=== PATIENT | male | born 1940 | race Caucasian/White ===

== ENCOUNTER 2020-08-06 11:41 | Inpatient (IN) | payer MEDICARE, MEDICAID ==
[~2020-08-06] VITALS: Ht 175.3 cm; Wt 52.2 kg
[2020-08-06] MEDS ORDERED: SODIUM CHLORIDE 0.9% 1,000 ML IV ONE (11:45)
[2020-08-06 12:13] LABS: Basophils # (auto) 0.1 10 ^3/uL (0-0.2); Basophils % (auto) 1.2 % (0.0-2.0); Eosinophils # (auto) 0.2 10 ^3/uL (0-0.8); Hematocrit 40.8 % (41.0-53.0); Hemoglobin 13.8 g/dL (13.5-17.5); Lymphocytes # (auto) 1.5 10 ^3/uL (0.4-5.4); Lymphocytes % (auto) 20.4 % (10.0-50.0); Mean Corpuscular Hemoglobin 32.2 pg (28.0-32.0); Mean Corpuscular Hgb Conc. 33.8 g/dL (32.0-36.0); Mean Corpuscular Volume 95.1 fL (80.0-100.0); Monocytes # (auto) 0.5 10 ^3/uL (0-1.3); Monocytes % (auto) 7.4 % (0.0-12.0); Red Blood Cells 4.29 10^6/uL (4.5-5.90); Red Cell Distribution Width 13.4 % (11.8-14.3); White Blood Cell 7.4 10^3/uL (4.4-10.8)
[2020-08-06 12:33] LABS: Albumin 3.6 g/dL (3.4-5.0); Anion Gap 6 (5-15); Blood Urea Nitrogen 25 mg/dL (7-18); Calcium 8.8 mg/dL (8.5-10.1); Carbon Dioxide 27 mmol/L (21-32); Chloride 112 mmol/L (98-107); Glucose 117 mg/dL (74-106); Magnesium 2.9 mg/dL (1.6-2.6); Sodium 145 mmol/L (136-145)
[2020-08-06 12:40] LABS: Alanine Aminotransferase 26 U/L (16-61); Alkaline Phosphatase 73 U/L (45-117); Aspartate Aminotransferase 40 U/L (15-37); Bilirubin, Total 0.7 mg/dL (0.2-1.0); GFR African American 72 mL/min; GFR Non-African American 60 mL/min
[2020-08-06] MEDS ORDERED: MORPHINE SULFATE INJECTION 2 MG/ML SYRG IV PRN (15:45)
[2020-08-06] MEDS ORDERED: ONDANSETRON HCL 4 MG/2 ML VIAL IV PRN (15:45)
[2020-08-06] MEDS ORDERED: NITROGLYCERIN 0.4 MG SL TAB SL PRN (15:45)
[2020-08-06] MEDS ORDERED: ACETAMINOPHEN 650 mg PER 20.3 mL UD PO PRN (15:45)
[2020-08-06] MEDS ORDERED: LORazepam 2MG/ML-1ML VIAL IV PRN (15:45)
[2020-08-06] MEDS: SODIUM CHLORIDE 0.9% 1,000 ML IV SCH (16:11)
[2020-08-06] MEDS: LACTULOSE 20Gm/30ML SOLN PO SCH (18:56)
[2020-08-06 20:30] VITALS: BP 153/78
[2020-08-06 22:00] VITALS: BP 153/78
[2020-08-07 05:00] VITALS: BP 156/77
[2020-08-07 05:57] LABS: Basophils # (auto) 0.1 10 ^3/uL (0-0.2); Eosinophils # (auto) 0.3 10 ^3/uL (0-0.8); Eosinophils % (auto) 3.4 % (0.0-7.0); Hematocrit 36.8 % (41.0-53.0); Hemoglobin 12.6 g/dL (13.5-17.5); Lymphocytes # (auto) 1.2 10 ^3/uL (0.4-5.4); Lymphocytes % (auto) 16.5 % (10.0-50.0); Mean Corpuscular Hemoglobin 32.4 pg (28.0-32.0); Mean Corpuscular Hgb Conc. 34.3 g/dL (32.0-36.0); Mean Corpuscular Volume 94.5 fL (80.0-100.0); Monocytes # (auto) 0.6 10 ^3/uL (0-1.3); Monocytes % (auto) 7.5 % (0.0-12.0); Neutrophils # (auto) 5.3 10 ^3/uL (1.6-8.6); Neutrophils % (auto) 71.6 % (37.0-80.0); Red Cell Distribution Width 13.1 % (11.8-14.3); White Blood Cell 7.5 10^3/uL (4.4-10.8)
[2020-08-07] MEDS: LACTULOSE 20Gm/30ML SOLN PO SCH ×4 (06:00→18:16)
[2020-08-07 06:10] LABS: INR 1.01 (0.9-1.15)
[2020-08-07 06:15] LABS: Albumin 3.2 g/dL (3.4-5.0); Calcium 8.2 mg/dL (8.5-10.1); Magnesium 2.4 mg/dL (1.6-2.6); Potassium 4.1 mmol/L (3.5-5.1)
[2020-08-07 06:17] LABS: BUN/Creatinine Ratio 20.4; Bilirubin, Total 0.7 mg/dL (0.2-1.0); Total Protein 6.1 g/dL (6.4-8.2)
[2020-08-07] MEDS: SODIUM CHLORIDE 0.9% 1,000 ML IV SCH (08:25)
[2020-08-07 08:58] VITALS: BP 173/74
[2020-08-07] MEDS: PANTOPRAZOLE 40 MG/10 ML VIAL INJ IV SCH (10:00)
[2020-08-07] MEDS: ENOXAPARIN SOD 40 MG/0.4 ML SYRINGE SC SCH (10:00)
[2020-08-07] MEDS: hydrALAZINE HCL 20 MG/ML VL IV PRN ×2 (11:23→18:17)
[2020-08-07] MEDS: MORPHINE SULFATE INJECTION 2 MG/ML SYRG IV PRN (11:23)
[2020-08-07] MEDS ORDERED: amLODIPine BESYLATE 5 MG TAB PO ONE (11:30)
[2020-08-07 13:00] VITALS: BP 185/99
[2020-08-07 17:00] VITALS: BP 157/79
[2020-08-07] MEDS: CARBIDOPA W LEVODOPA 25/100mg TABLET PO SCH (21:08)
[2020-08-07 22:00] VITALS: BP 150/76
[2020-08-08] MEDS: LACTULOSE 20Gm/30ML SOLN PO SCH ×6 (00:07→23:38)
[2020-08-08 05:00] VITALS: BP 120/62
[2020-08-08] MEDS: CARBIDOPA W LEVODOPA 25/100mg TABLET PO SCH ×3 (05:29→21:30)
[2020-08-08 06:32] LABS: Calcium 8.2 mg/dL (8.5-10.1); Potassium 3.9 mmol/L (3.5-5.1)
[2020-08-08 06:38] LABS: BUN/Creatinine Ratio 17.6
[2020-08-08] MEDS: SODIUM CHLORIDE 0.9% 1,000 ML IV SCH ×2 (08:07→17:45)
[2020-08-08 08:35] VITALS: BP 149/79
[2020-08-08 08:52] VITALS: BP 149/79
[2020-08-08] MEDS: amLODIPine BESYLATE 5 MG TAB PO SCH (09:55)
[2020-08-08] MEDS: PANTOPRAZOLE 40 MG/10 ML VIAL INJ IV SCH (09:55)
[2020-08-08] MEDS: MORPHINE SULFATE INJECTION 2 MG/ML SYRG IV PRN (09:56)
[2020-08-08] MEDS: ENOXAPARIN SOD 40 MG/0.4 ML SYRINGE SC SCH (09:56)
[2020-08-08 12:38] VITALS: BP 154/86
[2020-08-08 16:29] VITALS: BP 119/70
[2020-08-08] MEDS ORDERED: [UNRECOGNIZED DRUG - CODE] OR (18:21)
[2020-08-08] MEDS ORDERED: CHOL20007 OR (18:21)
[2020-08-08] MEDS ORDERED: LISI-716 PO (18:21)
[2020-08-08] MEDS ORDERED: SIMV-8 PO (18:21)
[2020-08-08 22:00] VITALS: BP 112/55
[2020-08-09 05:15] VITALS: BP 119/62
[2020-08-09] MEDS: CARBIDOPA W LEVODOPA 25/100mg TABLET PO SCH ×3 (05:49→21:41)
[2020-08-09] MEDS: LACTULOSE 20Gm/30ML SOLN PO SCH ×4 (05:49→23:43)
[2020-08-09 06:33] LABS: Basophils # (auto) 0.1 10 ^3/uL (0-0.2); Basophils % (auto) 0.5 % (0.0-2.0); Eosinophils # (auto) 0.1 10 ^3/uL (0-0.8); Eosinophils % (auto) 0.4 % (0.0-7.0); Hematocrit 37.3 % (41.0-53.0); Hemoglobin 12.6 g/dL (13.5-17.5); Mean Corpuscular Hemoglobin 32.3 pg (28.0-32.0); Mean Corpuscular Hgb Conc. 33.8 g/dL (32.0-36.0); Mean Corpuscular Volume 95.6 fL (80.0-100.0); Monocytes # (auto) 0.8 10 ^3/uL (0-1.3); Neutrophils # (auto) 11.9 10 ^3/uL (1.6-8.6); Neutrophils % (auto) 86.1 % (37.0-80.0); Nucleated Red Blood Cells % 0.1 %; Red Blood Cells 3.91 10^6/uL (4.5-5.90); Red Cell Distribution Width 13.3 % (11.8-14.3); White Blood Cell 13.8 10^3/uL (4.4-10.8)
[2020-08-09 06:48] LABS: Potassium 3.7 mmol/L (3.5-5.1)
[2020-08-09 06:59] LABS: Albumin 3.1 g/dL (3.4-5.0); BUN/Creatinine Ratio 18.6; Bilirubin, Total 0.9 mg/dL (0.2-1.0); Calcium 8.1 mg/dL (8.5-10.1); Total Protein 6.1 g/dL (6.4-8.2)
[2020-08-09] MEDS: MORPHINE SULFATE INJECTION 2 MG/ML SYRG IV PRN ×2 (08:25→14:33)
[2020-08-09 08:54] VITALS: BP 156/90
[2020-08-09] MEDS: PANTOPRAZOLE 40 MG/10 ML VIAL INJ IV SCH (09:47)
[2020-08-09] MEDS: amLODIPine BESYLATE 5 MG TAB PO SCH (09:47)
[2020-08-09] MEDS: ENOXAPARIN SOD 40 MG/0.4 ML SYRINGE SC SCH (09:48)
[2020-08-09] MEDS: SODIUM CHLORIDE 0.9% 1,000 ML IV SCH (09:48)
[2020-08-09] MEDS: hydrALAZINE HCL 20 MG/ML VL IV PRN ×2 (11:21→19:46)
[2020-08-09 13:00] VITALS: BP 167/91
[2020-08-09] MEDS ORDERED: cefTRIAXone 1GM/50ML D5W 50 ML IV ONE (15:00)
[2020-08-09 17:00] VITALS: BP 150/83
[2020-08-09 19:40] VITALS: BP 159/64
[2020-08-09 22:00] VITALS: BP 145/73
[2020-08-10] MEDS: SODIUM CHLORIDE 0.9% 1,000 ML IV SCH ×2 (04:10→05:24)
[2020-08-10 05:00] VITALS: BP 142/80
[2020-08-10] MEDS: LACTULOSE 20Gm/30ML SOLN PO SCH ×4 (05:23→23:58)
[2020-08-10] MEDS: CARBIDOPA W LEVODOPA 25/100mg TABLET PO SCH ×3 (05:23→21:40)
[2020-08-10 07:18] LABS: Basophils # (auto) 0 10 ^3/uL (0-0.2); Basophils % (auto) 0.4 % (0.0-2.0); Eosinophils # (auto) 0 10 ^3/uL (0-0.8); Eosinophils % (auto) 0.4 % (0.0-7.0); Hematocrit 37.6 % (41.0-53.0); Hemoglobin 12.7 g/dL (13.5-17.5); Lymphocytes # (auto) 0.7 10 ^3/uL (0.4-5.4); Lymphocytes % (auto) 6.6 % (10.0-50.0); Mean Corpuscular Hgb Conc. 33.8 g/dL (32.0-36.0); Mean Corpuscular Volume 94.7 fL (80.0-100.0); Monocytes # (auto) 0.8 10 ^3/uL (0-1.3); Monocytes % (auto) 7.5 % (0.0-12.0); Neutrophils # (auto) 9.4 10 ^3/uL (1.6-8.6); Neutrophils % (auto) 85.1 % (37.0-80.0); Red Blood Cells 3.97 10^6/uL (4.5-5.90); Red Cell Distribution Width 13.5 % (11.8-14.3)
[2020-08-10 08:00] VITALS: BP 158/87
[2020-08-10 08:00] LABS: BUN/Creatinine Ratio 19.7; Calcium 8.3 mg/dL (8.5-10.1); Potassium 3.6 mmol/L (3.5-5.1)
[2020-08-10 09:00] VITALS: BP 154/83
[2020-08-10] MEDS: amLODIPine BESYLATE 5 MG TAB PO SCH (10:33)
[2020-08-10] MEDS: ENOXAPARIN SOD 40 MG/0.4 ML SYRINGE SC SCH (10:34)
[2020-08-10] MEDS: PANTOPRAZOLE 40 MG/10 ML VIAL INJ IV SCH (10:34)
[2020-08-10] MEDS: hydrALAZINE HCL 20 MG/ML VL IV PRN ×2 (10:34→21:40)
[2020-08-10] MEDS: cefTRIAXone 1GM/50ML D5W 50 ML IV SCH (10:35)
[2020-08-10 10:57] LABS: Folate (Folic Acid) 14.75 ng/mL (5.38-24)
[2020-08-10 13:00] VITALS: BP 141/76
[2020-08-10] MEDS ORDERED: CHOLECALCIFEROL (VITD3) 2,000 UNIT CAP/TAB PO ONE (14:00)
[2020-08-10 17:00] VITALS: BP 153/78
[2020-08-10 22:02] VITALS: BP 178/90
[2020-08-11 05:00] VITALS: BP 152/84
[2020-08-11] MEDS: LACTULOSE 20Gm/30ML SOLN PO SCH ×4 (06:00→17:33)
[2020-08-11 06:18] LABS: Basophils # (auto) 0.1 10 ^3/uL (0-0.2); Basophils % (auto) 0.7 % (0.0-2.0); Eosinophils # (auto) 0.1 10 ^3/uL (0-0.8); Eosinophils % (auto) 1.1 % (0.0-7.0); Hematocrit 37.3 % (41.0-53.0); Hemoglobin 12.7 g/dL (13.5-17.5); Lymphocytes # (auto) 0.7 10 ^3/uL (0.4-5.4); Lymphocytes % (auto) 7.5 % (10.0-50.0); Mean Corpuscular Hemoglobin 32.3 pg (28.0-32.0); Mean Corpuscular Hgb Conc. 34.2 g/dL (32.0-36.0); Mean Corpuscular Volume 94.4 fL (80.0-100.0); Monocytes % (auto) 9.9 % (0.0-12.0); Neutrophils # (auto) 7.7 10 ^3/uL (1.6-8.6); Neutrophils % (auto) 80.8 % (37.0-80.0); Red Blood Cells 3.95 10^6/uL (4.5-5.90); Red Cell Distribution Width 12.9 % (11.8-14.3); White Blood Cell 9.6 10^3/uL (4.4-10.8)
[2020-08-11] MEDS: CARBIDOPA W LEVODOPA 25/100mg TABLET PO SCH ×3 (06:32→17:33)
[2020-08-11 06:46] LABS: Potassium 3.6 mmol/L (3.5-5.1)
[2020-08-11 06:55] LABS: Magnesium 2.4 mg/dL (1.6-2.6)
[2020-08-11 09:00] VITALS: BP 153/87
[2020-08-11] MEDS: PANTOPRAZOLE 40 MG/10 ML VIAL INJ IV SCH (09:11)
[2020-08-11] MEDS: ENOXAPARIN SOD 40 MG/0.4 ML SYRINGE SC SCH (09:11)
[2020-08-11] MEDS: amLODIPine BESYLATE 5 MG TAB PO SCH (09:13)
[2020-08-11] MEDS: cefTRIAXone 1GM/50ML D5W 50 ML IV SCH (09:14)
[2020-08-11] MEDS ORDERED: CHOLECALCIFEROL (VITD3) 2,000 UNIT CAP/TAB PO SCH (10:00)
[2020-08-11] MEDS ORDERED: LISINOPRIL 10 MG TAB PO ONE (11:30)
[2020-08-11] MEDS ORDERED: CHOL1CAP47 PO (11:39)
[2020-08-11] MEDS ORDERED: FAMO-12 PO (11:39)
[2020-08-11] MEDS ORDERED: MIR30T PO (11:39)
[2020-08-11] MEDS ORDERED: AML5T PO (11:39)
[2020-08-11] MEDS ORDERED: CAR25T PO (11:39)
[2020-08-11] MEDS ORDERED: DOCU-94 PO (11:39)
[2020-08-11] MEDS ORDERED: LACT10SO3 PO ×2 (11:40→11:45)
[2020-08-11 13:00] VITALS: BP 147/82
[2020-08-11 17:00] VITALS: BP 153/87
[2020-08-11] MEDS ORDERED: MIRTAZAPINE 30 MG TAB PO SCH (22:00)
[2020-08-12] MEDS ORDERED: LISINOPRIL 10 MG TAB PO SCH (10:00)
[2020-08-12] MEDS ORDERED: FAMOTIDINE 20 MG TAB PO SCH (10:00)
== END 2020-08-11 19:22 | DRG 421 ==
LOC: ER 11:41 → EDBD 11:41 → TELE 15:42 → TELE-WESTW 20:30
PROVIDERS: ADMIT Family Medicine; ATTEND Internal Medicine
DX: R62.7 Adult failure to thrive (principal); N17.0 Acute kidney failure with tubular necrosis; E86.0 Dehydration; G20 Parkinson's disease; R65.10 Systemic inflammatory response syndrome (SIRS) of non-infectious origin without acute organ dysfunction; G30.9 Alzheimer's disease, unspecified; F02.80 Dementia in other diseases classified elsewhere, unspecified severity, without behavioral disturbance, psychotic disturbance, mood disturbance, and anxiety; K59.09 Other constipation; R63.4 Abnormal weight loss; R73.9 Hyperglycemia, unspecified; N18.2 Chronic kidney disease, stage 2 (mild); R32 Unspecified urinary incontinence; N40.0 Benign prostatic hyperplasia without lower urinary tract symptoms; E78.5 Hyperlipidemia, unspecified; E55.9 Vitamin D deficiency, unspecified; E78.00 Pure hypercholesterolemia, unspecified; F17.200 Nicotine dependence, unspecified, uncomplicated; I12.9 Hypertensive chronic kidney disease with stage 1 through stage 4 chronic kidney disease, or unspecified chronic kidney disease; Z20.822 Contact with and (suspected) exposure to COVID-19; F32.89 Other specified depressive episodes; R41.841 Cognitive communication deficit; Z68.1 Body mass index [BMI] 19.9 or less, adult
CPT/HCPCS: 36415; 70551; 71045; 74176; 80048; 80053; 80061; 82306; 82607; 82746; 83735; 83880; 84132; 84154; 84443; 84484; 85025; 85610; 87086; 87426; 93005; 95819; 96360; 96361; 97116; 97530; C9113; G0378; J0696; J2405

== ENCOUNTER 2020-08-28 21:00 | Inpatient (IN) | payer MEDICARE, MEDICAID ==
[~2020-08-28] VITALS: Ht 182.9 cm; Wt 56.8 kg
[~2020-08-28 21:00] MED LIST: AML5T PO; CAR25T PO; CHOL1CAP47 PO; DOCU-94 PO; FAMO-12 PO; LACT10SO3 PO; LISI-716 PO; MIR30T PO; SIMV-8 PO; [UNRECOGNIZED DRUG - CODE] OR
[2020-08-28] MEDS ORDERED: SODIUM CHLORIDE 0.9% 1,000 ML IV ONE ×2 (22:00→23:15)
[2020-08-28 22:13] LABS: Hematocrit 46.2 % (41.0-53.0); Hemoglobin 15.3 g/dL (13.5-17.5); Mean Corpuscular Hemoglobin 32.3 pg (28.0-32.0); Mean Corpuscular Hgb Conc. 33.1 g/dL (32.0-36.0); Mean Corpuscular Volume 97.6 fL (80.0-100.0); Platelet Count (auto) 243 10^3/uL (140-450); Red Blood Cells 4.74 10^6/uL (4.5-5.90); Red Cell Distribution Width 14.3 % (11.8-14.3)
[2020-08-28 22:18] LABS: Basophils % (manual) 0 (0.0-2.0); Blast Cells 0; Eosinophils % (manual) 0 (0-7); Metamyelocytes % 0; Promyelocytes % 0; Reactive Lymphocytes 0
[2020-08-28 22:31] LABS: Alanine Aminotransferase 15 U/L (16-61); Albumin 2.2 g/dL (3.4-5.0); Amylase 37 U/L (25-115); Anion Gap 5 (5-15); Aspartate Aminotransferase 19 U/L (15-37); BUN/Creatinine Ratio 47.1; Calcium 9.7 mg/dL (8.5-10.1); Carbon Dioxide 23 mmol/L (21-32); Chloride 141 mmol/L (98-107); GFR African American 31 mL/min; GFR Non-African American 26 mL/min; Glucose 110 mg/dL (74-106); Lipase 95 U/L (73-393); Magnesium 3.6 mg/dL (1.6-2.6); Potassium 3.7 mmol/L (3.5-5.1)
[2020-08-28 22:34] LABS: Lactic Acid w/Reflex 2.6 mmol/L (0.4-2.0)
[2020-08-28 22:37] LABS: Alkaline Phosphatase 80 U/L (45-117); Bilirubin, Total 0.5 mg/dL (0.2-1.0)
[2020-08-28 22:47] LABS: INR 1.16 (0.9-1.15); Partial Thromboplastin Time 24.9 sec (23.0-31.2)
[2020-08-28 23:06] LABS: Band Neutrophils % (manual) 4; Lymphocytes % (manual) 3 (10.0-50.0); Monocytes % (manual) 3 (0-12); Myelocytes % 1
[2020-08-28 23:12] LABS: Blood Urea Nitrogen 122 mg/dL (7-18); Sodium 169 mmol/L (136-145)
[2020-08-28 23:29] LABS: Urine Bacteria NONE SEEN /hpf (None Seen); Urine Blood 1+ /uL (Negative); Urine Hyaline Cast FEW /lpf (0 - 2); Urine Mucus FEW (None Seen); Urine Specific Gravity 1.023 (1.001-1.035); Urine WBC 3 /hpf (0 - 3)
[2020-08-29] VITALS (7 sets, daily range): BP systolic 111–139; BP diastolic 59–84
[2020-08-29] MEDS ORDERED: cefTRIAXone 1GM/50ML D5W 50 ML IV ONE (00:30)
[2020-08-29] MEDS ORDERED: ACETAMINOPHEN 325 MG RECT SUPP PR PRN (03:00)
[2020-08-29] MEDS ORDERED: NITROGLYCERIN 0.4 MG SL TAB SL PRN (03:00)
[2020-08-29] MEDS ORDERED: ONDANSETRON HCL 4 MG/2 ML VIAL IV PRN (03:00)
[2020-08-29] MEDS ORDERED: VANCOMYCIN PER PHARMACY 0 MG IV SCH (03:00)
[2020-08-29] MEDS ORDERED: MORPHINE SULF INJ 2 MG/ML SYRINGE 1ML IV PRN (03:00)
[2020-08-29] MEDS ORDERED: D5W 5% 1,000 ML IV SCH (03:00)
[2020-08-29] MEDS ORDERED: MORPHINE SULFATE 4 MG/ML SYR/VIAL IV PRN (03:00)
[2020-08-29] MEDS ORDERED: ALBUMIN 25% 50 ML IV ONE (03:30)
[2020-08-29] MEDS ORDERED: VANCOMYCIN 1GM/250ML 250 ML IV ONE (03:30)
[2020-08-29] MEDS ORDERED: LACT1CAP14 PO (04:38)
[2020-08-29] MEDS ORDERED: AML5T PO (04:38)
[2020-08-29] MEDS ORDERED: ERGO20002 PO (04:38)
[2020-08-29] MEDS ORDERED: BIOF500C2 PO (04:38)
[2020-08-29] MEDS ORDERED: ZINC220C8 PO (04:38)
[2020-08-29] MEDS ORDERED: LACT10SO70 PO (04:38)
[2020-08-29] MEDS ORDERED: VITA400C49 PO (04:38)
[2020-08-29] MEDS ORDERED: FAMO20TA10 PO (04:38)
[2020-08-29] MEDS ORDERED: CRAN450T PO (04:38)
[2020-08-29] MEDS ORDERED: ACET-1156 PO (04:38)
[2020-08-29] MEDS ORDERED: LISI-716 PO (04:38)
[2020-08-29] MEDS ORDERED: CARB-80 PO (04:38)
[2020-08-29 08:18] LABS: Basophils # (auto) 0 10 ^3/uL (0-0.2); Basophils % (auto) 0.2 % (0.0-2.0); Eosinophils # (auto) 0 10 ^3/uL (0-0.8); Hematocrit 37.8 % (41.0-53.0); Hemoglobin 12.1 g/dL (13.5-17.5); Lymphocytes # (auto) 0.6 10 ^3/uL (0.4-5.4); Lymphocytes % (auto) 2.3 % (10.0-50.0); Mean Corpuscular Hgb Conc. 31.9 g/dL (32.0-36.0); Mean Corpuscular Volume 97.1 fL (80.0-100.0); Monocytes # (auto) 1.2 10 ^3/uL (0-1.3); Monocytes % (auto) 4.9 % (0.0-12.0); Neutrophils # (auto) 22.1 10 ^3/uL (1.6-8.6); Neutrophils % (auto) 92.6 % (37.0-80.0); Platelet Count (auto) 185 10^3/uL (140-450); Red Blood Cells 3.89 10^6/uL (4.5-5.90); White Blood Cell 23.8 10^3/uL (4.4-10.8)
[2020-08-29 08:30] LABS: BUN/Creatinine Ratio 50.7; Calcium 8.5 mg/dL (8.5-10.1); Potassium 3.7 mmol/L (3.5-5.1)
[2020-08-29 08:33] LABS: Bilirubin, Total 0.4 mg/dL (0.2-1.0); Total Protein 6.4 g/dL (6.4-8.2)
[2020-08-29] MEDS ORDERED: cefTRIAXone 1GM/50ML D5W 50 ML IV SCH (09:00)
[2020-08-29] MEDS: D5W 5% 1,000 ML IV SCH ×2 (10:00→18:43)
[2020-08-29] MEDS ORDERED: AZITHROMYCIN 500MG/ 250ML 250 ML IV SCH (10:00)
[2020-08-29] MEDS: FAMOTIDINE (10MG/ML) 2ML VL IV SCH (10:12)
[2020-08-29] MEDS: HEPARIN SODIUM (PORCINE) 5000 UNITS/ML 1ML VIAL SC SCH ×2 (10:13→23:20)
[2020-08-29 12:49] LABS: Urine Amorphous Crystal FEW /hpf (None Seen); Urine Bacteria FEW /hpf (None Seen); Urine Blood 1+ /uL (Negative); Urine Mucus FEW (None Seen); Urine Specific Gravity 1.023 (1.001-1.035); Urine WBC 4 /hpf (0 - 3)
[2020-08-29 13:23] LABS: Creatinine, Urine 91 mg/dL (30.0-125.0); Sodium Urine 14 mmol/L (40-220)
[2020-08-29] MEDS ORDERED: ALBUTEROL SULF HFA 90MCG INH 200DOSE IN SCH (18:00)
[2020-08-29 18:11] LABS: Calcium 9.1 mg/dL (8.5-10.1); Potassium 3.8 mmol/L (3.5-5.1)
[2020-08-29] MEDS ORDERED: PIPERACILLIN-TAZOB 2.25GM 50 ML IV ONE (18:15)
[2020-08-29] MEDS: ALBUTEROL SULF 2.5 MG/0.5ML(0.5%) NEB SOLN NEB SCH ×2 (19:28→23:51)
[2020-08-29] MEDS: LINEZOLID 600MG/300ML 300 ML IV SCH (23:18)
[2020-08-30] MEDS: PIPERACILLIN-TAZOB 2.25GM 50 ML IV SCH ×4 (00:55→17:42)
[2020-08-30] MEDS: ALBUTEROL SULF 2.5 MG/0.5ML(0.5%) NEB SOLN NEB SCH ×6 (02:00→22:53)
[2020-08-30] MEDS: D5W 5% 1,000 ML IV SCH ×3 (04:45→17:27)
[2020-08-30 05:14] VITALS: BP 103/62
[2020-08-30 06:11] LABS: Basophils # (auto) 0 10 ^3/uL (0-0.2); Basophils % (auto) 0.2 % (0.0-2.0); Eosinophils # (auto) 0 10 ^3/uL (0-0.8); Hematocrit 38.2 % (41.0-53.0); Hemoglobin 12.4 g/dL (13.5-17.5); Lymphocytes # (auto) 0.5 10 ^3/uL (0.4-5.4); Lymphocytes % (auto) 2.1 % (10.0-50.0); Mean Corpuscular Hemoglobin 31.9 pg (28.0-32.0); Mean Corpuscular Hgb Conc. 32.6 g/dL (32.0-36.0); Mean Corpuscular Volume 97.7 fL (80.0-100.0); Monocytes # (auto) 0.8 10 ^3/uL (0-1.3); Monocytes % (auto) 3.2 % (0.0-12.0); Neutrophils # (auto) 22.6 10 ^3/uL (1.6-8.6); Neutrophils % (auto) 94.5 % (37.0-80.0); Nucleated Red Blood Cells % 0.1 %; Platelet Count (auto) 149 10^3/uL (140-450); Red Blood Cells 3.91 10^6/uL (4.5-5.90); Red Cell Distribution Width 14.3 % (11.8-14.3)
[2020-08-30 06:29] LABS: Albumin 1.8 g/dL (3.4-5.0); Calcium 8.9 mg/dL (8.5-10.1); Potassium 3.5 mmol/L (3.5-5.1)
[2020-08-30 06:33] LABS: BUN/Creatinine Ratio 41.7; Bilirubin, Total 0.4 mg/dL (0.2-1.0); Phosphorus 2.6 mg/dL (2.5-4.90); Total Protein 6.4 g/dL (6.4-8.2)
[2020-08-30 09:00] VITALS: BP 107/60
[2020-08-30] MEDS: FAMOTIDINE (10MG/ML) 2ML VL IV SCH (10:07)
[2020-08-30] MEDS: LINEZOLID 600MG/300ML 300 ML IV SCH ×2 (10:07→21:44)
[2020-08-30] MEDS: HEPARIN SODIUM (PORCINE) 5000 UNITS/ML 1ML VIAL SC SCH ×2 (10:39→21:44)
[2020-08-30 12:39] VITALS: BP 107/60
[2020-08-30 13:00] VITALS: BP 104/64
[2020-08-30 17:00] VITALS: BP 103/61
[2020-08-30 18:19] LABS: BUN/Creatinine Ratio 37.8; Calcium 8.7 mg/dL (8.5-10.1); Potassium 3.5 mmol/L (3.5-5.1)
[2020-08-30 22:44] VITALS: BP 101/64
[2020-08-31] MEDS: PIPERACILLIN-TAZOB 2.25GM 50 ML IV SCH ×4 (00:18→18:01)
[2020-08-31] MEDS: D5W 5% 1,000 ML IV SCH ×3 (00:18→16:30)
[2020-08-31] MEDS: MORPHINE SULF INJ 2 MG/ML SYRINGE 1ML IV PRN ×3 (02:20→21:02)
[2020-08-31] MEDS: ALBUTEROL SULF 2.5 MG/0.5ML(0.5%) NEB SOLN NEB SCH ×6 (02:40→22:51)
[2020-08-31 05:03] VITALS: BP 103/56
[2020-08-31 05:54] LABS: Basophils # (auto) 0.1 10 ^3/uL (0-0.2); Basophils % (auto) 0.3 % (0.0-2.0); Eosinophils # (auto) 0.1 10 ^3/uL (0-0.8); Eosinophils % (auto) 0.3 % (0.0-7.0); Hematocrit 37.4 % (41.0-53.0); Hemoglobin 12.3 g/dL (13.5-17.5); Lymphocytes # (auto) 0.9 10 ^3/uL (0.4-5.4); Lymphocytes % (auto) 4.7 % (10.0-50.0); Mean Corpuscular Hgb Conc. 32.9 g/dL (32.0-36.0); Mean Corpuscular Volume 97.3 fL (80.0-100.0); Monocytes # (auto) 0.7 10 ^3/uL (0-1.3); Monocytes % (auto) 3.9 % (0.0-12.0); Neutrophils % (auto) 90.8 % (37.0-80.0); Platelet Count (auto) 108 10^3/uL (140-450); Red Blood Cells 3.84 10^6/uL (4.5-5.90); Red Cell Distribution Width 14.5 % (11.8-14.3); White Blood Cell 18.7 10^3/uL (4.4-10.8)
[2020-08-31 06:17] LABS: Calcium 8.7 mg/dL (8.5-10.1); Potassium 3.5 mmol/L (3.5-5.1)
[2020-08-31 06:20] LABS: BUN/Creatinine Ratio 34.7
[2020-08-31 08:54] VITALS: BP 105/53
[2020-08-31] MEDS: FAMOTIDINE (10MG/ML) 2ML VL IV SCH (10:27)
[2020-08-31] MEDS: LINEZOLID 600MG/300ML 300 ML IV SCH ×2 (10:27→22:05)
[2020-08-31] MEDS: HEPARIN SODIUM (PORCINE) 5000 UNITS/ML 1ML VIAL SC SCH ×2 (10:30→22:05)
[2020-08-31 12:40] VITALS: BP 126/73
[2020-08-31 17:00] VITALS: BP 140/78
[2020-08-31 22:00] VITALS: BP 140/72
[2020-09-01] MEDS: PIPERACILLIN-TAZOB 2.25GM 50 ML IV SCH ×5 (00:23→23:40)
[2020-09-01] MEDS: ALBUTEROL SULF 2.5 MG/0.5ML(0.5%) NEB SOLN NEB SCH ×6 (02:11→22:27)
[2020-09-01 05:26] VITALS: BP 113/73
[2020-09-01] MEDS: D5W 5% 1,000 ML IV SCH ×4 (05:49→23:40)
[2020-09-01 05:52] LABS: Basophils # (auto) 0 10 ^3/uL (0-0.2); Basophils % (auto) 0.1 % (0.0-2.0); Eosinophils # (auto) 0.1 10 ^3/uL (0-0.8); Eosinophils % (auto) 0.6 % (0.0-7.0); Hemoglobin 12.4 g/dL (13.5-17.5); Lymphocytes # (auto) 0.6 10 ^3/uL (0.4-5.4); Lymphocytes % (auto) 3.9 % (10.0-50.0); Mean Corpuscular Hgb Conc. 33.6 g/dL (32.0-36.0); Mean Corpuscular Volume 95.5 fL (80.0-100.0); Monocytes # (auto) 0.6 10 ^3/uL (0-1.3); Monocytes % (auto) 3.5 % (0.0-12.0); Neutrophils # (auto) 15.1 10 ^3/uL (1.6-8.6); Neutrophils % (auto) 91.9 % (37.0-80.0); Platelet Count (auto) 103 10^3/uL (140-450); Red Blood Cells 3.88 10^6/uL (4.5-5.90); Red Cell Distribution Width 13.8 % (11.8-14.3); White Blood Cell 16.5 10^3/uL (4.4-10.8)
[2020-09-01 06:06] LABS: Calcium 8.6 mg/dL (8.5-10.1); Potassium 3.3 mmol/L (3.5-5.1)
[2020-09-01 06:08] LABS: BUN/Creatinine Ratio 30.8
[2020-09-01 09:00] VITALS: BP 138/86
[2020-09-01] MEDS: LINEZOLID 600MG/300ML 300 ML IV SCH ×2 (09:51→21:20)
[2020-09-01] MEDS: FAMOTIDINE (10MG/ML) 2ML VL IV SCH (09:51)
[2020-09-01] MEDS: HEPARIN SODIUM (PORCINE) 5000 UNITS/ML 1ML VIAL SC SCH ×2 (10:03→21:20)
[2020-09-01] MEDS: Glucerna 1.2 Cal 1Liter BOTTLE GT SCH (11:30)
[2020-09-01 13:00] VITALS: BP 114/66
[2020-09-01] MEDS: POTASSIUM CHL 20MEQ/100ML 100 ML IV SCH ×2 (13:02→16:04)
[2020-09-01 16:50] VITALS: BP 124/70
[2020-09-01] MEDS: MORPHINE SULF INJ 2 MG/ML SYRINGE 1ML IV PRN (21:22)
[2020-09-01 22:00] VITALS: BP 128/76
[2020-09-02] MEDS: ALBUTEROL SULF 2.5 MG/0.5ML(0.5%) NEB SOLN NEB SCH ×6 (02:27→22:37)
[2020-09-02] MEDS: D5W 5% 1,000 ML IV SCH ×3 (04:51→21:40)
[2020-09-02 05:00] VITALS: BP 110/63
[2020-09-02] MEDS ORDERED: ALBUTEROL SULF 2.5 MG/0.5ML(0.5%) NEB SOLN ONE (05:26)
[2020-09-02] MEDS: PIPERACILLIN-TAZOB 2.25GM 50 ML IV SCH ×4 (05:53→23:57)
[2020-09-02 06:16] LABS: Basophils # (auto) 0 10 ^3/uL (0-0.2); Basophils % (auto) 0.1 % (0.0-2.0); Eosinophils # (auto) 0.2 10 ^3/uL (0-0.8); Eosinophils % (auto) 1.2 % (0.0-7.0); Hematocrit 33.7 % (41.0-53.0); Hemoglobin 11.4 g/dL (13.5-17.5); Lymphocytes # (auto) 0.6 10 ^3/uL (0.4-5.4); Lymphocytes % (auto) 4.8 % (10.0-50.0); Mean Corpuscular Hgb Conc. 33.9 g/dL (32.0-36.0); Mean Corpuscular Volume 94.4 fL (80.0-100.0); Monocytes # (auto) 0.5 10 ^3/uL (0-1.3); Neutrophils # (auto) 11.7 10 ^3/uL (1.6-8.6); Neutrophils % (auto) 89.9 % (37.0-80.0); Platelet Count (auto) 101 10^3/uL (140-450); Red Blood Cells 3.57 10^6/uL (4.5-5.90); Red Cell Distribution Width 13.7 % (11.8-14.3); White Blood Cell 13.1 10^3/uL (4.4-10.8)
[2020-09-02 06:34] LABS: Calcium 8.2 mg/dL (8.5-10.1); Potassium 3.6 mmol/L (3.5-5.1)
[2020-09-02 06:36] LABS: BUN/Creatinine Ratio 31.1
[2020-09-02 07:00] VITALS: BP 128/74
[2020-09-02 08:43] VITALS: BP 110/63
[2020-09-02] MEDS: Glucerna 1.2 Cal 1Liter BOTTLE GT SCH (09:00)
[2020-09-02] MEDS: FAMOTIDINE (10MG/ML) 2ML VL IV SCH (09:25)
[2020-09-02] MEDS: LINEZOLID 600MG/300ML 300 ML IV SCH ×2 (09:26→21:40)
[2020-09-02] MEDS: HEPARIN SODIUM (PORCINE) 5000 UNITS/ML 1ML VIAL SC SCH ×2 (09:53→21:42)
[2020-09-02] MEDS ORDERED: SODIUM CHLORIDE 0.9 % NEB SOLN 3ML NEB ONE ×2 (10:28→14:09)
[2020-09-02 13:00] VITALS: BP 126/72
[2020-09-02 17:00] VITALS: BP 125/79
[2020-09-02 22:00] VITALS: BP 111/80
[2020-09-03] MEDS: ALBUTEROL SULF 2.5 MG/0.5ML(0.5%) NEB SOLN NEB SCH ×6 (02:06→22:36)
[2020-09-03 05:00] VITALS: BP 138/80
[2020-09-03] MEDS: PIPERACILLIN-TAZOB 2.25GM 50 ML IV SCH ×3 (06:00→18:51)
[2020-09-03 06:03] LABS: Basophils # (auto) 0 10 ^3/uL (0-0.2); Basophils % (auto) 0.2 % (0.0-2.0); Eosinophils # (auto) 0.1 10 ^3/uL (0-0.8); Eosinophils % (auto) 0.8 % (0.0-7.0); Hematocrit 36.3 % (41.0-53.0); Hemoglobin 12.5 g/dL (13.5-17.5); Lymphocytes # (auto) 0.6 10 ^3/uL (0.4-5.4); Lymphocytes % (auto) 4.2 % (10.0-50.0); Mean Corpuscular Hemoglobin 32.3 pg (28.0-32.0); Mean Corpuscular Hgb Conc. 34.5 g/dL (32.0-36.0); Mean Corpuscular Volume 93.6 fL (80.0-100.0); Monocytes # (auto) 0.6 10 ^3/uL (0-1.3); Monocytes % (auto) 4.2 % (0.0-12.0); Neutrophils # (auto) 12.9 10 ^3/uL (1.6-8.6); Neutrophils % (auto) 90.6 % (37.0-80.0); Nucleated Red Blood Cells % 0.1 %; Platelet Count (auto) 111 10^3/uL (140-450); Red Blood Cells 3.87 10^6/uL (4.5-5.90); Red Cell Distribution Width 13.5 % (11.8-14.3); White Blood Cell 14.2 10^3/uL (4.4-10.8)
[2020-09-03 06:15] LABS: BUN/Creatinine Ratio 28.6; Calcium 7.9 mg/dL (8.5-10.1); Potassium 3.6 mmol/L (3.5-5.1)
[2020-09-03 09:00] VITALS: BP 129/82
[2020-09-03] MEDS: HEPARIN SODIUM (PORCINE) 5000 UNITS/ML 1ML VIAL SC SCH ×3 (10:00→22:03)
[2020-09-03] MEDS: FAMOTIDINE (10MG/ML) 2ML VL IV SCH (10:37)
[2020-09-03] MEDS: LINEZOLID 600MG/300ML 300 ML IV SCH ×2 (10:38→22:02)
[2020-09-03] MEDS: D5W 5% 1,000 ML IV SCH ×3 (10:42→22:00)
[2020-09-03] MEDS ORDERED: METOCLOPRAMIDE HCL 5MG/ml INJ 2ml VIAL IV ONE (12:00)
[2020-09-03 13:00] VITALS: BP 134/71
[2020-09-03] MEDS: MORPHINE SULF INJ 2 MG/ML SYRINGE 1ML IV PRN (13:11)
[2020-09-03 16:40] VITALS: BP 116/67
[2020-09-03 22:00] VITALS: BP 106/54
[2020-09-03] MEDS: METOCLOPRAMIDE HCL 5MG/ml INJ 2ml VIAL IV SCH (22:01)
[2020-09-04] MEDS: PIPERACILLIN-TAZOB 2.25GM 50 ML IV SCH ×2 (00:20→05:53)
[2020-09-04 05:00] VITALS: BP 138/90
[2020-09-04] MEDS: METOCLOPRAMIDE HCL 5MG/ml INJ 2ml VIAL IV SCH ×3 (05:53→21:32)
[2020-09-04 06:37] LABS: Basophils # (auto) 0 10 ^3/uL (0-0.2); Basophils % (auto) 0.2 % (0.0-2.0); Eosinophils # (auto) 0.1 10 ^3/uL (0-0.8); Eosinophils % (auto) 0.5 % (0.0-7.0); Hematocrit 36.3 % (41.0-53.0); Hemoglobin 12.2 g/dL (13.5-17.5); Lymphocytes # (auto) 0.8 10 ^3/uL (0.4-5.4); Lymphocytes % (auto) 4.2 % (10.0-50.0); Mean Corpuscular Hemoglobin 31.8 pg (28.0-32.0); Mean Corpuscular Hgb Conc. 33.5 g/dL (32.0-36.0); Monocytes # (auto) 0.6 10 ^3/uL (0-1.3); Monocytes % (auto) 3.5 % (0.0-12.0); Neutrophils % (auto) 91.6 % (37.0-80.0); Platelet Count (auto) 133 10^3/uL (140-450); Red Blood Cells 3.82 10^6/uL (4.5-5.90); Red Cell Distribution Width 13.4 % (11.8-14.3); White Blood Cell 18.5 10^3/uL (4.4-10.8)
[2020-09-04] MEDS: ALBUTEROL SULF 2.5 MG/0.5ML(0.5%) NEB SOLN NEB SCH ×6 (06:51→21:52)
[2020-09-04 06:54] LABS: Potassium 3.4 mmol/L (3.5-5.1)
[2020-09-04 09:00] VITALS: BP 124/79
[2020-09-04] MEDS: FAMOTIDINE (10MG/ML) 2ML VL IV SCH (09:26)
[2020-09-04] MEDS: LINEZOLID 600MG/300ML 300 ML IV SCH ×2 (09:27→21:33)
[2020-09-04] MEDS: MORPHINE SULF INJ 2 MG/ML SYRINGE 1ML IV PRN ×2 (09:28→17:38)
[2020-09-04] MEDS: D5W 5% 1,000 ML IV SCH (09:37)
[2020-09-04] MEDS: HEPARIN SODIUM (PORCINE) 5000 UNITS/ML 1ML VIAL SC SCH ×2 (09:41→21:33)
[2020-09-04] MEDS ORDERED: FLUCONAZOLE 200MG/100ML 100 ML IV ONE (11:15)
[2020-09-04 13:00] VITALS: BP 111/62
[2020-09-04] MEDS: AMPICILLIN INJ 1 GM in SODIUM CHL 0.9% 50 ML IV SCH ×2 (14:59→17:45)
[2020-09-04 16:28] VITALS: BP 156/81
[2020-09-04 22:00] VITALS: BP 122/58
[2020-09-05] MEDS: AMPICILLIN INJ 1 GM in SODIUM CHL 0.9% 50 ML IV SCH ×4 (00:16→17:45)
[2020-09-05] MEDS: ALBUTEROL SULF 2.5 MG/0.5ML(0.5%) NEB SOLN NEB SCH ×6 (02:02→21:48)
[2020-09-05] MEDS: D5W 5% 1,000 ML IV SCH ×2 (02:10→07:00)
[2020-09-05 05:00] VITALS: BP 144/81
[2020-09-05] MEDS: METOCLOPRAMIDE HCL 5MG/ml INJ 2ml VIAL IV SCH ×3 (05:27→23:35)
[2020-09-05 08:54] VITALS: BP 144/81
[2020-09-05 08:56] VITALS: BP 132/72
[2020-09-05] MEDS: HEPARIN SODIUM (PORCINE) 5000 UNITS/ML 1ML VIAL SC SCH ×2 (09:58→23:37)
[2020-09-05] MEDS: FLUCONAZOLE 200MG/100ML 100 ML IV SCH (10:07)
[2020-09-05] MEDS: FAMOTIDINE (10MG/ML) 2ML VL IV SCH (10:07)
[2020-09-05] MEDS: LINEZOLID 600MG/300ML 300 ML IV SCH ×2 (10:07→23:36)
[2020-09-05 11:05] LABS: Basophils # (auto) 0.1 10 ^3/uL (0-0.2); Basophils % (auto) 0.3 % (0.0-2.0); Eosinophils # (auto) 0.1 10 ^3/uL (0-0.8); Eosinophils % (auto) 0.5 % (0.0-7.0); Hematocrit 28.7 % (41.0-53.0); Hemoglobin 9.8 g/dL (13.5-17.5); Lymphocytes # (auto) 0.9 10 ^3/uL (0.4-5.4); Mean Corpuscular Hemoglobin 31.6 pg (28.0-32.0); Mean Corpuscular Hgb Conc. 34.1 g/dL (32.0-36.0); Mean Corpuscular Volume 92.6 fL (80.0-100.0); Monocytes # (auto) 0.6 10 ^3/uL (0-1.3); Monocytes % (auto) 2.8 % (0.0-12.0); Neutrophils # (auto) 19.8 10 ^3/uL (1.6-8.6); Neutrophils % (auto) 92.4 % (37.0-80.0); Platelet Count (auto) 143 10^3/uL (140-450); Red Cell Distribution Width 12.8 % (11.8-14.3); White Blood Cell 21.4 10^3/uL (4.4-10.8)
[2020-09-05 11:23] LABS: BUN/Creatinine Ratio 38.2; Calcium 7.6 mg/dL (8.5-10.1)
[2020-09-05 11:43] LABS: Potassium 2.9 mmol/L (3.5-5.1)
[2020-09-05] MEDS ORDERED: POTASSIUM CHL 20MEQ/100ML 100 ML IV ONE (12:00)
[2020-09-05 12:32] VITALS: BP 147/82
[2020-09-05] MEDS: POTASSIUM CHL 20MEQ/100ML 100 ML IV SCH ×5 (12:57→23:38)
[2020-09-05 17:00] VITALS: BP 142/76
[2020-09-05] MEDS: D5W/LACTATED RINGERS 1,000 ML IV SCH (17:30)
[2020-09-05] MEDS ORDERED: POTASSIUM CHL 20MEQ/100ML 100 ML IV SCH (18:00)
[2020-09-05 22:00] VITALS: BP 137/97
[2020-09-06] MEDS: AMPICILLIN INJ 1 GM in SODIUM CHL 0.9% 50 ML IV SCH ×5 (00:58→23:58)
[2020-09-06] MEDS: ALBUTEROL SULF 2.5 MG/0.5ML(0.5%) NEB SOLN NEB SCH ×6 (02:06→22:17)
[2020-09-06 05:00] VITALS: BP 133/72
[2020-09-06] MEDS: D5W/LACTATED RINGERS 1,000 ML IV SCH ×2 (06:14→19:40)
[2020-09-06] MEDS: METOCLOPRAMIDE HCL 5MG/ml INJ 2ml VIAL IV SCH ×3 (06:14→22:11)
[2020-09-06 07:29] LABS: Basophils # (auto) 0.1 10 ^3/uL (0-0.2); Basophils % (auto) 0.5 % (0.0-2.0); Eosinophils # (auto) 0.2 10 ^3/uL (0-0.8); Eosinophils % (auto) 0.8 % (0.0-7.0); Hematocrit 29.3 % (41.0-53.0); Lymphocytes # (auto) 0.8 10 ^3/uL (0.4-5.4); Lymphocytes % (auto) 4.3 % (10.0-50.0); Mean Corpuscular Hemoglobin 31.8 pg (28.0-32.0); Mean Corpuscular Hgb Conc. 34.3 g/dL (32.0-36.0); Mean Corpuscular Volume 92.8 fL (80.0-100.0); Monocytes # (auto) 0.6 10 ^3/uL (0-1.3); Monocytes % (auto) 3.3 % (0.0-12.0); Neutrophils # (auto) 16.6 10 ^3/uL (1.6-8.6); Neutrophils % (auto) 91.1 % (37.0-80.0); Nucleated Red Blood Cells % 0.1 %; Platelet Count (auto) 178 10^3/uL (140-450); Red Blood Cells 3.16 10^6/uL (4.5-5.90); Red Cell Distribution Width 12.8 % (11.8-14.3); White Blood Cell 18.2 10^3/uL (4.4-10.8)
[2020-09-06 07:34] LABS: INR 1.17 (0.9-1.15); Partial Thromboplastin Time 32.7 sec (23.0-31.2)
[2020-09-06 07:36] LABS: Albumin 1.2 g/dL (3.4-5.0); Calcium 7.6 mg/dL (8.5-10.1); Magnesium 2.3 mg/dL (1.6-2.6)
[2020-09-06 07:39] LABS: BUN/Creatinine Ratio 32.5; Bilirubin, Total 0.6 mg/dL (0.2-1.0); Phosphorus 2.3 mg/dL (2.5-4.90); Total Protein 5.7 g/dL (6.4-8.2)
[2020-09-06 08:00] VITALS: BP 145/85
[2020-09-06 09:00] VITALS: BP 145/85
[2020-09-06] MEDS: HEPARIN SODIUM (PORCINE) 5000 UNITS/ML 1ML VIAL SC SCH ×2 (10:09→22:12)
[2020-09-06] MEDS: LINEZOLID 600MG/300ML 300 ML IV SCH ×2 (10:15→22:11)
[2020-09-06] MEDS: FAMOTIDINE (10MG/ML) 2ML VL IV SCH (10:15)
[2020-09-06] MEDS: MORPHINE SULF INJ 2 MG/ML SYRINGE 1ML IV PRN (10:15)
[2020-09-06] MEDS: FLUCONAZOLE 200MG/100ML 100 ML IV SCH (10:16)
[2020-09-06 12:31] VITALS: BP 140/58
[2020-09-06 16:37] VITALS: BP 145/75
[2020-09-06 22:00] VITALS: BP 151/80
[2020-09-07] MEDS: ALBUTEROL SULF 2.5 MG/0.5ML(0.5%) NEB SOLN NEB SCH ×6 (01:42→22:22)
[2020-09-07] MEDS: MORPHINE SULF INJ 2 MG/ML SYRINGE 1ML IV PRN ×2 (04:55→11:50)
[2020-09-07 05:00] VITALS: BP 157/93
[2020-09-07 05:42] VITALS: BP 129/72
[2020-09-07] MEDS: AMPICILLIN INJ 1 GM in SODIUM CHL 0.9% 50 ML IV SCH (06:23)
[2020-09-07] MEDS: METOCLOPRAMIDE HCL 5MG/ml INJ 2ml VIAL IV SCH ×3 (06:23→22:28)
[2020-09-07 06:46] LABS: Basophils # (auto) 0.1 10 ^3/uL (0-0.2); Basophils % (auto) 0.4 % (0.0-2.0); Eosinophils # (auto) 0.2 10 ^3/uL (0-0.8); Eosinophils % (auto) 1.1 % (0.0-7.0); Hematocrit 34.4 % (41.0-53.0); Hemoglobin 10.5 g/dL (13.5-17.5); Lymphocytes # (auto) 0.9 10 ^3/uL (0.4-5.4); Lymphocytes % (auto) 5.8 % (10.0-50.0); Mean Corpuscular Hemoglobin 30.7 pg (28.0-32.0); Mean Corpuscular Hgb Conc. 30.4 g/dL (32.0-36.0); Monocytes # (auto) 0.8 10 ^3/uL (0-1.3); Monocytes % (auto) 5.2 % (0.0-12.0); Neutrophils # (auto) 14.1 10 ^3/uL (1.6-8.6); Neutrophils % (auto) 87.5 % (37.0-80.0); Platelet Count (auto) 189 10^3/uL (140-450); Red Blood Cells 3.41 10^6/uL (4.5-5.90); Red Cell Distribution Width 13.8 % (11.8-14.3); White Blood Cell 16.1 10^3/uL (4.4-10.8)
[2020-09-07 06:55] LABS: INR 1.25 (0.9-1.15); Partial Thromboplastin Time 27.6 sec (23.0-31.2)
[2020-09-07 07:06] LABS: Potassium 3.8 mmol/L (3.5-5.1)
[2020-09-07 07:20] LABS: Albumin 1.1 g/dL (3.4-5.0); BUN/Creatinine Ratio 29.1; Bilirubin, Total 0.6 mg/dL (0.2-1.0); Calcium 7.7 mg/dL (8.5-10.1); Magnesium 2.3 mg/dL (1.6-2.6); Total Protein 5.7 g/dL (6.4-8.2)
[2020-09-07 09:00] VITALS: BP 127/62
[2020-09-07] MEDS: FLUCONAZOLE 200MG/100ML 100 ML IV SCH (10:20)
[2020-09-07] MEDS: LINEZOLID 600MG/300ML 300 ML IV SCH (10:21)
[2020-09-07] MEDS: HEPARIN SODIUM (PORCINE) 5000 UNITS/ML 1ML VIAL SC SCH ×2 (10:23→22:29)
[2020-09-07] MEDS: FAMOTIDINE (10MG/ML) 2ML VL IV SCH (10:24)
[2020-09-07] MEDS: D5W/LACTATED RINGERS 1,000 ML IV SCH ×2 (10:24→23:29)
[2020-09-07] MEDS: Glucerna 1.2 Cal 1Liter BOTTLE GT SCH (11:53)
[2020-09-07] MEDS: AMPICILLIN & SULBACTAM SODIUM 3 GM in SODIUM CHL 0.9% 100 ML IV SCH ×3 (12:08→23:30)
[2020-09-07 12:25] VITALS: BP 141/75
[2020-09-07 22:00] VITALS: BP 144/80
[2020-09-08] MEDS: ALBUTEROL SULF 2.5 MG/0.5ML(0.5%) NEB SOLN NEB SCH ×3 (02:00→09:58)
[2020-09-08] MEDS ORDERED: SODIUM CHLORIDE 0.9 % NEB SOLN 3ML NEB ONE (02:07)
[2020-09-08 05:00] VITALS: BP 129/77
[2020-09-08] MEDS: AMPICILLIN & SULBACTAM SODIUM 3 GM in SODIUM CHL 0.9% 100 ML IV SCH ×2 (05:36→11:15)
[2020-09-08] MEDS: METOCLOPRAMIDE HCL 5MG/ml INJ 2ml VIAL IV SCH (05:44)
[2020-09-08 06:33] LABS: Calcium 8.1 mg/dL (8.5-10.1); Potassium 3.9 mmol/L (3.5-5.1)
[2020-09-08 06:35] LABS: BUN/Creatinine Ratio 24.2
[2020-09-08 06:51] VITALS: BP 121/78
[2020-09-08 08:52] VITALS: BP 144/83
[2020-09-08] MEDS: HEPARIN SODIUM (PORCINE) 5000 UNITS/ML 1ML VIAL SC SCH (10:00)
[2020-09-08] MEDS: FAMOTIDINE (10MG/ML) 2ML VL IV SCH (10:00)
[2020-09-08] MEDS: FLUCONAZOLE 200MG/100ML 100 ML IV SCH (10:00)
[2020-09-08] MEDS: D5W/LACTATED RINGERS 1,000 ML IV SCH (11:46)
[2020-09-08 12:11] VITALS: BP 138/83
== END 2020-09-08 14:25 | disposition hospice, inpatient (51) | DRG 720 ==
LOC: EDBD 21:00 → ER 21:00 → TELE-EAST 08-29 03:14
PROVIDERS: ADMIT Nurse Practitioner Family; ATTEND Internal Medicine
PROC: 0DH67UZ Insertion of Feeding Device into Stomach, Via Natural or Artificial Opening (ICD-10-PCS; principal; 2020-08-30)
DX: A41.01 Sepsis due to Methicillin susceptible Staphylococcus aureus (principal); J69.0 Pneumonitis due to inhalation of food and vomit; E43 Unspecified severe protein-calorie malnutrition; N17.0 Acute kidney failure with tubular necrosis; G92 Toxic encephalopathy; E87.0 Hyperosmolality and hypernatremia; D69.6 Thrombocytopenia, unspecified; Z20.822 Contact with and (suspected) exposure to COVID-19; L89.90 Pressure ulcer of unspecified site, unspecified stage; N39.0 Urinary tract infection, site not specified; Z51.5 Encounter for palliative care; Z66 Do not resuscitate; R62.7 Adult failure to thrive; E87.6 Hypokalemia; Z68.1 Body mass index [BMI] 19.9 or less, adult; B95.2 Enterococcus as the cause of diseases classified elsewhere; E78.00 Pure hypercholesterolemia, unspecified; E78.5 Hyperlipidemia, unspecified; N18.31 Chronic kidney disease, stage 3a; R53.2 Functional quadriplegia; I12.9 Hypertensive chronic kidney disease with stage 1 through stage 4 chronic kidney disease, or unspecified chronic kidney disease; Z79.899 Other long term (current) drug therapy
CPT/HCPCS: 36415; 51702; 70450; 71045; 74176; 80048; 80053; 80202; 81001; 82150; 82570; 82728; 83605; 83690; 83735; 84100; 84132; 84300; 84484; 85007; 85025; 85027; 85610; 85730; 86141; 87040; 87077; 87081; 87086; 87088; 87186; 87426; 92610; 93005; 94640; 96361; 96365; 97110; 97530; 99291; G0378; J0696; J1450; J2543; J3480; J3490; J7042